=== PATIENT | female | born 1965 | race African-American/Black ===

== ENCOUNTER → 2016-08-17 | Outpatient (CLI) | payer OTHER ==
--- NOTE | ~2016-08-17 | NM86 ---
[facility] A Service of [facility] RADIOLOGY TEXT RESULTS PATIENT: VERONIQUE HUNTLEY LOCATION: [facility] : 65 UNIT #: [id number] AGE: [address]: Courtney Sol MD SEX: F ORDER DR: [id number] [facility] [address] [place], [place] [address] [id number] O MR#: [id number] Acc #: [id number] NAME: VERONIQUE HUNTLEY : 1965 SEX: F STUDY DATE/TIME: 08/17/2016 7:02 UNIT: [facility] ROOM: STUDY DESCRIPTION: NM Thyroid Img W Uptake Attending Physician: Courtney Sol M.D. Referring Physician: Courtnye Sol M.D. Ordering Physician: Courtney Sol M.D. Primary Care Physician: Syed Weeks Jr., A.P.R.N. MEDICAL IMAGING REPORT This report is preliminary unless electronic signature is present EXAM Thyroid uptake and scan HISTORY Family history of goiter. Neck mass noticed 2 weeks ago. Palpitations and abnormal thyroid function tests. TECHNIQUE The patient ingested 169.4 microcuries of I-123 in capsule form. Calculated 24-hour radioactive iodine uptake is 64% with 35% the upper limits of normal. Scanning over the gland in 3 projections shows no focal hot or cold nodules. IMPRESSION Abnormal increased 24-hour radioactive iodine uptake of 64%. Normal scanning of the gland with no nodules identified. Dictated by... Sunny Carbone M.D. THIS IS AN ELECTRONICALLY VERIFIED REPORT Sunny Carbone M.D. at 08/17/2016 3:46 PM RADHA/rosa m TD: 08/17/2016 10:47 JOB #: [id number] MEDICAL IMAGING REPORT Page 1 of 1 COPY
== END | disposition home or self-care (01) ==
LOC: CNUC 06:21
DX: R94.6 Abnormal results of thyroid function studies (principal)
CPT/HCPCS: 78014; A9516